=== PATIENT | male | born 1975 | race Caucasian/White ===

== ENCOUNTER 2024-02-10 05:31 | Emergency (ER) | payer SELFPAY ==
[~2024-02-10] VITALS: Ht 172.7 cm; Wt 80.7 kg
[2024-02-10 05:34] VITALS: BP_SYST 125; PULSE 94; RESP 16; TEMP 97.1; O2SAT 97
[2024-02-10 06:00] VITALS: BP_SYST 125; PULSE 94; RESP 16; TEMP 97.1; O2SAT 97
== END 2024-02-10 06:00 ==
LOC: SED 05:31
DX: E11.65 Type 2 diabetes mellitus with hyperglycemia (principal); E78.00 Pure hypercholesterolemia, unspecified
CPT/HCPCS: 99283